=== PATIENT | male | born 1970 | race Two or more races ===

== ENCOUNTER 2022-11-18 15:53 | Emergency (ER) | payer OTHER, MEDICAID ==
[~2022-11-18] VITALS: Ht 162.6 cm; Wt 71.0 kg
[2022-11-18 16:35] VITALS: BP 145/95
[2022-11-18] MEDS ORDERED: CYCL-837 PO (18:26)
[2022-11-18] MEDS ORDERED: ACET1CAP14 PO (18:26)
[2022-11-18] MEDS ORDERED: ACETAMINOPHEN 500 MG TAB PO ONE (18:30)
== END 2022-11-18 18:55 | disposition home or self-care (01) ==
LOC: ER 15:53 → EDBD 15:53 → ER 18:55
DX: S16.1XXA Strain of muscle, fascia and tendon at neck level, initial encounter (principal); S06.0X0A Concussion without loss of consciousness, initial encounter; S00.83XA Contusion of other part of head, initial encounter; V43.52XA Car driver injured in collision with other type car in traffic accident, initial encounter; Y93.89 Activity, other specified; Y92.89 Other specified places as the place of occurrence of the external cause; Y99.8 Other external cause status
CPT/HCPCS: 70450; 70486; 71046; 72125; 93005